=== PATIENT | male | born 1950 | race Two or more races ===

== ENCOUNTER 2024-09-07 06:35 | Day surgery (SDC) | payer OTHER ==
[2024-09-07] MEDS ORDERED: DIPHENHYDRAMINE HCL 50 MG/ML VIAL 1ML IV ONE (10:15)
[2024-09-07] MEDS ORDERED: MIDAZOLAM HCL 2 MG/2 ML VIAL IV ONE (10:15)
[2024-09-07] MEDS ORDERED: fentaNYL CITRATE 50 MCG/ML AMPUL IV PUSH ONE (10:15)
[2024-09-07] MEDS ORDERED: MIDAZOLAM HCL 2 MG/2 ML VIAL IV PUSH ONE (10:15)
== END 2024-09-07 11:30 | disposition home or self-care (01) ==
LOC: AMB-ENDOS 06:35
PROVIDERS: ATTEND Surgery
DX: K62.1 Rectal polyp (principal)

== ENCOUNTER 2024-10-29 12:03 | Inpatient (IN) | payer OTHER ==
[~2024-10-29] VITALS: Ht 91.4 cm; Wt 49.9 kg
[2024-10-29] MEDS ORDERED: RESTORIL30 M1 PO (12:45)
[2024-11-02] MEDS ORDERED: DEXTROSE 50 % IN WATER 0.5 G/ML VIAL IV PRN (16:30)
[2024-11-02] MEDS ORDERED: MORPHINE SULFATE 4 MG/ML CARTRIDGE IV PRN (16:30)
[2024-11-02] MEDS ORDERED: RINGERS SOLUTION,LACTATED 1,000 ML IV SCH (16:30)
[2024-11-02] MEDS ORDERED: ONDANSETRON HCL 2 MG/ML VIAL IV PRN (16:30)
[2024-11-02] MEDS ORDERED: OxyCODONE HCL 5 MG TABLET (ROXICODONE) PO PRN (16:30)
[2024-11-02] MEDS ORDERED: ACETAMINOPHEN 500 MG GEL..CAP PO SCH (20:00)
[2024-11-02] MEDS ORDERED: LIDOCAINE HCL 1%/EPINEPHRINE 20ML VIAL IJ ONE (20:30)
[2024-11-02] MEDS ORDERED: METRONIDAZOLE/SODIUM CHLORIDE 500 MG/100 ML PIGGYBACK IV ONE ×2 (20:30)
[2024-11-02] MEDS ORDERED: DIBUCAINE 30 GM TUBE RECTAL ONE (20:30)
[2024-11-02] MEDS ORDERED: HEMOSTATIC MATRIX 1 KIT KIT TOP ONE (20:30)
[2024-11-02] MEDS ORDERED: FAMOTIDINE/PF 20 MG/2 ML VIAL IV PUSH SCH (21:00)
[2024-11-02 23:16] LABS: HEMATOCRIT 39.5 % (39.0-48.0); HEMOGLOBIN 13.4 g/dL (13-16.00); MEAN CORPUSCULAR HEMOGLOBIN 32.1 pg (27.00-32.0); MEAN CORPUSCULAR HGB CONC 33.8 g/dl (32.0-36.0); PLATELET COUNT 269 K/uL (150-450); RED BLOOD COUNT 4.16 M/uL (4.00-6.00); RED CELL DISTRIBUTION WIDTH 13.2 % (11.5-14.5)
[2024-11-02 23:36] LABS: ALBUMIN 3.7 gm/dL (3.4-5.0); CREATININE SERUM 0.92 mg/dL (0.70-1.30); GFR 80.42; MAGNESIUM 2.1 mg/dL (1.8-2.4); PHOSPHOROUS 3.6 mg/dL (2.5-4.9); POTASSIUM 5.13 mEq/L (3.5-5.1)
[2024-11-03 02:45] VITALS: BP 123/73; O2SAT 100
[2024-11-03 08:00] VITALS: BP 114/50; O2SAT 96
[2024-11-03 09:27] LABS: HEMATOCRIT 39.3 % (39.0-48.0); HEMOGLOBIN 13.2 g/dL (13-16.00); MEAN CELL VOLUME 96.3 fL (80.0-100.00); MEAN CORPUSCULAR HEMOGLOBIN 32.4 pg (27.00-32.0); MEAN CORPUSCULAR HGB CONC 33.6 g/dl (32.0-36.0); PLATELET COUNT 281 K/uL (150-450); RED BLOOD COUNT 4.08 M/uL (4.00-6.00); RED CELL DISTRIBUTION WIDTH 13.1 % (11.5-14.5)
[2024-11-03 10:16] LABS: ALBUMIN 3.6 gm/dL (3.4-5.0); CALCIUM 8.6 mg/dL (8.5-10.1); CREATININE SERUM 0.94 mg/dL (0.70-1.30); GFR 78.45; MAGNESIUM 1.8 mg/dL (1.8-2.4); PHOSPHOROUS 3.2 mg/dL (2.5-4.9); POTASSIUM 4.97 mEq/L (3.5-5.1)
[2024-11-03 16:00] VITALS: BP 109/56; O2SAT 95
[2024-11-03] MEDS ORDERED: ENOXAPARIN SODIUM 40 MG/0.4 ML SYRINGE SUBCUTANEO SCH (17:00)
[2024-11-04] MEDS ORDERED: ENOXAPARIN SODIUM 40 MG/0.4 ML SYRINGE SUBCUTANEO SCH (09:00)
== END 2024-11-03 18:47 | disposition home or self-care (01) | DRG 349 ==
LOC: SURH 11-02 08:30 → O/R 11-02 08:35 → SURH 11-02 12:30
PROVIDERS: ADMIT Surgery; ATTEND Surgery
PROC: 0DBP7ZZ Excision of Rectum, Via Natural or Artificial Opening (ICD-10-PCS; principal; 2024-11-02 08:30)
DX: D12.8 Benign neoplasm of rectum (principal)